=== PATIENT | male | born 1955 | race Caucasian/White ===

== ENCOUNTER 2016-08-13 17:14 | Emergency (ER) | payer OTHER ==
[2016-08-13 17:50] VITALS: BP 115/70; PULSE 55; RESP 18; TEMP 98.1; O2SAT 98
[2016-08-13] MEDS ORDERED: OXYCODONE/APAP 5/325MG PREPACK#4 BTL TAKEHOME ONE (19:31)
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
[2016-08-13] MEDS ORDERED: POLYMYXIN B SULFATE/TMP 10 ML OPHT.BTL ONE (19:51)
[2016-08-13] MEDS ORDERED: NEO/POLYMYX B SULF/DEXAMETH 5 ML OPHT.BTL RTEYE SCH (21:00)
== END 2016-08-13 19:57 | disposition home or self-care (01) ==
LOC: CED 17:14
PROC: 08C8XZZ Extirpation of Matter from Right Cornea, External Approach (ICD-10-PCS; principal; 2016-08-13)
DX: T15.01XA Foreign body in cornea, right eye, initial encounter (principal); X58.XXXA Exposure to other specified factors, initial encounter
CPT/HCPCS: G0463-PO